=== PATIENT | female | born 1950 | race Caucasian/White ===

== ENCOUNTER 2018-04-01 19:15 | Emergency (ER) | payer MEDICARE, MEDICAID ==
[~2018-04-01] VITALS: Ht 157.5 cm; Wt 59.0 kg
[~2018-04-01 19:15] MED LIST: AUGMENTIN875TAB PO; KEFLEX500 MG PO; ULTRAM50 M1 PO
[2018-04-01] MEDS ORDERED: KEFLEX500 M1 PO (20:15)
[2018-04-01] MEDS ORDERED: MEDDOSEPAK PO (20:15)
[2018-04-01 20:20] VITALS: BP 130/64
== END 2018-04-01 20:20 | disposition home or self-care (01) ==
LOC: ED 19:15
DX: L23.7 Allergic contact dermatitis due to plants, except food (principal); L03.114 Cellulitis of left upper limb; Y92.828 Other wilderness area as the place of occurrence of the external cause

== ENCOUNTER 2022-03-14 18:37 | Emergency (ER) | payer MEDICARE, MEDICAID ==
[~2022-03-14] VITALS: Ht 157.5 cm; Wt 63.5 kg
[~2022-03-14 18:37] MED LIST changes: +KEFLEX500 M1 PO; +MEDDOSEPAK PO
[2022-03-14 19:39] LABS: ALBUMIN 4.3 g/dL (3.2-5.0); CREATININE 1.3 mg/dL (0.5-1.0); POTASSIUM 3.4 mmol/l (3.5-5.1); TOTAL PROTEIN 7.3 g/dL (6.3-8.2)
[2022-03-14 19:52] LABS: HEMATOCRIT 37.3 % (37.0-47.0); HEMOGLOBIN 12.6 g/dl (12.0-16.0); IMMATURE GRANULOCYTES 0.9 % (0.0-5.0); MEAN CELL VOLUME 85.7 fL CALC (80.0-100.0); MEAN CORPUSCULAR HGB CONC 33.8 g/dL CAL (32.0-36.0); PLATELET COUNT 340 thou/uL (130-400); RED BLOOD COUNT 4.35 mill/uL (4.20-5.60); RED CELL DISTRI WIDTH 13.8 % (11.5-15.5)
[2022-03-14 19:55] LABS: MANUAL DIFFERENTIAL YES
[2022-03-14 20:14] LABS: BAND 0 % (0-8)
[2022-03-14 20:15] LABS: PLATELET ESTIMATE NORMAL
[2022-03-14 20:33] VITALS: BP 149/61
== END 2022-03-14 20:33 | disposition left against medical advice (07) ==
LOC: ED 18:37
PROVIDERS: Emergency Medicine
DX: I77.6 Arteritis, unspecified (principal); D72.829 Elevated white blood cell count, unspecified; F17.200 Nicotine dependence, unspecified, uncomplicated; Z53.29 Procedure and treatment not carried out because of patient's decision for other reasons